=== PATIENT | male | born 1995 | race Caucasian/White ===

== ENCOUNTER 2019-07-03 15:43 | Emergency (ER) | payer OTHER ==
--- NOTE | 2019-07-03 15:54 | PDOC ---
Rapid Medical Evaluation Medical Evaluation: Allergies Allergy/AdvReac Type Severity Reaction Status Date / Time No Known Allergies Allergy Verified 05/22/17 12:41 07/03/19 15:47 I have performed a brief in-person evaluation of this patient. The patient presents with a chief complaint of:cough w/ chest pain w/ ? sob and subjective fever. No hemoptysis, body aches. No h/o PNA. No tob hx Pertinent physical exam findings:stable and well anupama I have ordered the following:ekg done at triage and wnl, CXR The patient will proceed to the ED for further evaluation. Discharge Disposition - Diagnosis Cough - Referrals - Patient Instructions - Post Discharge Activity
[2019-07-03 15:56] VITALS: BP 141/85; PULSE 95; TEMP 98.9; BMI 25.8
[2019-07-03] MEDS ORDERED: DEXAMETHASONE LIQUID 0.5 MG/5 ML PO ONE (18:55)
[2019-07-03] MEDS ORDERED: ALBUTEROL SO4 2.5/IPRATROPIUM 0.5 INH SOL 3 ML VIAL.NEB. NEB SCH (19:00)
--- NOTE | 2019-07-03 19:01 | PDOC ---
History of Present Illness - General Chief Complaint: Cold Symptoms Stated Complaint: CHEST PAIN Time Seen by Provider: 07/03/19 15:53 - History of Present Illness Initial Comments: 07/03/19 19:00 24-year-old male with shortness of breath cough and intermittent chest pain and subjective fever at home x2 days no comorbidities Past History - Past Medical History Allergies/Adverse Reactions: Allergies Allergy/AdvReac Type Severity Reaction Status Date / Time No Known Allergies Allergy Verified 05/22/17 12:41 Home Medications: Ambulatory Orders Fluconazole 150 mg PO ONCE #2 tablet 05/22/17 Albuterol Sulfate Inhaler - [Ventolin HFA Inhaler -] 1 - 2 inh PO Q4H #1 inhaler 07/03/19 COPD: No - Immunization History Immunization Up to Date: Yes - Psycho Social/Smoking Cessation Hx Smoking History: Never smoked Have you smoked in the past 12 months: No Information on smoking cessation initiated: No Hx Alcohol Use: No Drug/Substance Use Hx: No Substance Use Type: None Review of Systems - Review of Systems Constitutional: Yes: Fever Respiratory: Yes: Cough Cardiac (ROS): Yes: Chest Pain *Physical Exam - Vital Signs Last Vital Signs Temp Pulse Resp BP Pulse Ox 98.9 F 95 H 18 141/85 95 07/03/19 15:54 07/03/19 15:54 07/03/19 15:54 07/03/19 15:54 07/03/19 15:54 - Physical Exam 07/03/19 19:01 GENERAL: The patient is awake, alert, and fully oriented, in no acute distress. HEAD: Normal with no signs of trauma. EYES: sclera anicteric, conjunctiva clear. ENT: Ears normal tympanic membranes normal oropharynx clear uvula midline NECK: Normal range of motion LUNGS: Diffuse expiratory wheezing HEART: S1 and S2 without murmur, rub or gallop. ABDOMEN: Soft, nontender, normoactive bowel sounds. No guarding, no rebound. No masses. EXTREMITIES: Normal range of motion, no edema. No clubbing or cyanosis. No cords, erythema, or tenderness. NEUROLOGICAL: Cranial nerves II through XII grossly intact. Normal speech, normal gait. PSYCH: Normal mood, normal affect. SKIN: Warm, Dry, normal turgor, no rashes or lesions noted. Medical Decision Making - Medical Decision Making 07/03/19 19:50 No wheezing after fourth DuoNeb and Decadron follow-up with primary care physician Discharge - Discharge Information Problems reviewed: Yes Clinical Impression/Diagnosis: Cough, Asthma Condition: Stable Disposition: HOME - Admission No - Follow up/Referral Referrals: Vanessa Trevizo MD [Staff Physician] - - Patient Discharge Instructions Patient Printed Discharge Instructions: DI for Asthma -- Adult, Asthma -- Adult Additional Instructions: Please use the inhaler as directed. Return to the emergency room for worsening symptoms. Without fail please follow-up with primary care physician in 2 to 3 days for further evaluation and treatment options. - Post Discharge Activity
[2019-07-03] MEDS ORDERED: ALBUTEROL SO4 2.5/IPRATROPIUM 0.5 INH SOL 3 ML VIAL.NEB. NEB ONE (19:09)
[2019-07-03] MEDS ORDERED: DEXAMETHASONE SOD PHOSPHATE 10 MG/1 ML VIAL ONE (19:09)
--- NOTE | 2019-07-04 11:54 | EKG ---
Test Reason : Blood Pressure : / mmHG Vent. Rate : 095 BPM Atrial Rate : 095 BPM P-R Int : 158 ms QRS Dur : 088 ms QT Int : 322 ms P-R-T Axes : 057 022 043 degrees QTc Int : 404 ms POOR DATA QUALITY, INTERPRETATION MAY BE ADVERSELY AFFECTED NORMAL SINUS RHYTHM NORMAL ECG NO PREVIOUS ECGS AVAILABLE Confirmed by ANIL SORAINO, NAPOLEON ([id number]) on 07/04/2019 11:54:25 AM Referred By: Confirmed By:NAPOLEON MA MD
== END 2019-07-03 20:04 | disposition home or self-care (01) ==
LOC: JERFT 15:43
CPT/HCPCS: 71046-TC-FY; 87804; 87807; 93005; 93010; 99282-25